=== PATIENT | female | born 1980 | race Caucasian/White ===

== ENCOUNTER 2023-08-19 11:30 | Outpatient (AMB) | payer OTHER, SELFPAY ==
[2023-08-19 12:20] VITALS: BP 118/70; PULSE 74; TEMP 36.6; O2SAT 98; BMI 25.0
--- NOTE | 2023-08-19 12:20 | AM.OFFWIN_ITS ---
Intake Vital Signs 08/19/23 12:20 Height 5 ft 6 in Weight 155 lb BMI 25.0 BP 118/70 Blood Pressure Location Lt brachial Position Sitting Pulse 74 Pulse Source Pulse Oximeter Temp 97.9 F Temp Source Temporal Artery Scan Pulse Oximetry (%) 98 Oxygen Delivery Method Room Air Intake Visit Reasons: [employer] Lower back pain radiating down legs Intake Note: pt is here lower back pain radiating down legs started saturday Patient Tobacco Use Status: Never used Tobacco Allergies No Known Allergies Allergy (Verified 08/19/23 12:23) Do you need a note to return to daycare/school/sports/work: Yes HPI HPI Comments History of Present Illness Details Patient presents to the walk-in today for sick visit Endorses lower back pain for last 3 days. Started after she did hiking moving some furniture around the house Reports that she has this happened a couple times a year, normally will be seen by her primary care doctor and given prednisone which resolved her symptoms Spoke to her PCP today, they are not able to see her so they advised her to come to the walk-in Denies radiation of the pain down either lower extremity Denies loss of bowel, bladder or saddle anesthesia She has been taking cyclobenzaprine and ibuprofen with minimal improvement PFSH Social History Patient Tobacco Use Status: Never used Tobacco Review of Systems Const All systems reviewed & are unremarkable except as noted in HPI and below Physical Exam Vital Signs: Last Vital Signs Temp 97.9 F 08/19/23 12:20 Pulse 74 08/19/23 12:20 BP 118/70 08/19/23 12:20 Pulse Ox 98 08/19/23 12:20 Oxygen Delivery Method Room Air 08/19/23 12:20 BMI result Body Mass Index 25.0 General: awake, alert, oriented. Answers questions appropriately. Fully engaged in examination. Skin: warm, dry, intact HEENT: Normocephalic. Hearing intact. Cardiac: External chest normal in appearance. Respiratory: No cough, audible wheezing or stridor. Abdomen: without gross distension. MS: No obvious swelling or deformities. Able to stand on bilateral tiptoes and bilateral heels.? Able to transition from sit to stand unassisted. Ambulates with bilaterally normal heel strike and toe off SLR with dorsiflexion negative bilaterally Tender to palpation midline lumbar vertebrae lumbar paraspinal muscles Decreased lumbar range of motion Neurological: Oriented to person, place, time and situation. Thought process intact. No gait abnormalities appreciated. Psychiatric: Appropriate mood and affect. Good judgment and insight. Assessment & Plan Assessment & Plan (1) Lumbar strain: Code(s): S39.012A - Strain of muscle, fascia and tendon of lower back, initial encounter Plan Continue with ibuprofen and cyclobenzaprine New Rx: Prednisone 50 mg p.o. daily x5 days Patient advised on red flag symptoms and when to seek treatment in the emergency room Follow up with PCP or return here for any new or worsening symptoms Medications: New prednisone 50 mg PO DAILY 5 tabs 0RF 5 days Coding Level of Care Code New Pt Level 3 (72145) Diagnoses Lumbar strain S39.012A
== END 2023-08-19 13:00 | disposition home or self-care (01) ==
PROVIDERS: PCP Internal Medicine; Visit Provider Registered Nurse Emergency
DX: S39.012A Strain of muscle, fascia and tendon of lower back, initial encounter (principal)
CPT/HCPCS: 99203

== ENCOUNTER 2024-12-30 13:58 | Outpatient (REF) | payer OTHER, SELFPAY ==
--- OUTSIDE RECORDS SUMMARY | 2024-12-30 17:43 | XMS_ITS | Clinical Summary ---
Author Organization [facility] Address [address] [place] [address] Care Team Providers Care Machine Tracer Name Role Phone Unavailable Primary Care Provider Unavailabl e Source Comments PLEASE NOTE, if this patient is a minor, it may be UNLAWFUL to discuss sensitive information that is contained in these records (such as FAMILY PLANNING, MENTAL HEALTH or SUBSTANCE ABUSE) with the minor patient's parent or other person without the patient's specific authorization.[facility] Social History Tobacco Use Types Packs/Day Years Used Date Smoking Tobacco: Never Assessed Comments Unknown Sex and Gender Information Value Date Recorded Sex Assigned at Not on file Legal Sex Female 7:15 AM PDT Gender Identity Not on file Sexual Orientation Not on file Last Filed Vital Signs Vital Sign Reading Time Taken Comments Blood Pressure - - Pulse - - Temperature - - Respiratory Rate - - Oxygen Saturation - - Inhaled Oxygen Concentration - - Weight 75.8 kg (167 lb) 02/22/2015 10:20 AM EST Height 167.6 cm (5' 6 ) 02/22/2015 10:20 AM EST Body Mass Index 26.95 02/22/2015 10:20 AM EST Plan of Treatment Not on file Goals Goal Patient Goal Type Associated Problems Recent Progress Patient-Stated? Author Eat more fruits and vegetables Diet Not on track( 11:14 AM PST) No Luz Elena Bueno RD Have 3 meals a day Diet On track( 11:14 AM PST) No Luz Elena Bueno RD Reduce sugar intake Diet Not on track( 11:14 AM PST) No Luz Elena Bueno RD Reduce portion size Diet Not on track( 11:14 AM PST) No Luz Elena Bueno RD Increase physical activity Exercise Not on track( 11:14 AM PST) No Luz Elena Bueno RD Insurance [employer] Member Subscriber Plan / Payer (Ef fective 2013-Present) Name:Eric Cheunglie Relation to Subscriber:Self Name:Eric Cheunglie Payer ID:[id number] Group ID:[id number] Type:Medicaid Address: [address] [address] [place] [address]
--- OUTSIDE RECORDS SUMMARY | 2024-12-30 17:44 | XMS_ITS ---
Author Name [facility] Organization Unknown Care Team Organization Name Specialty Phone Email Start Date End Da te [facility] Karyn Thornton Primary Care 06/20/2022 024 [facility] Carla Chowdhury Primary Care 02/20/20222023
--- OUTSIDE RECORDS SUMMARY | 2024-12-30 17:44 | XMS_ITS | Clinical Summary ---
Author Organization [facility] Address [address] [place] [address] Care Team Providers Care Director Of Vital Statistics Name Role Phone Zain Flores MD Primary Care Provider [phone] Allergies No known active allergies Medications Medication Sig Dispensed Refills Start Date End Date Status fluticasone (FLONASE) 50 MCG/ACT nasal spray spray/apply 1 spray in each nostril 2 (two) times a day. 0 Active cetirizine (ZyrTEC) 10 MG tablet Take 10 mg by mouth daily. 0 Active albuterol 108 (90 Base) MCG/ACT inhaler Inhale 2 puffs into the lungs every 4 (four) hours as needed for wheezing. 0 Active famotidine (PEPCID) 20 MG tablet Take 20 mg by mouth 2 (two) times a day. 0 Active omeprazole (PriLOSEC) 20 MG capsule Take 20 mg by mouth daily. 0 Active Fluorouracil 5 % SOLN Apply 2 drops topically daily. 0 Active norethindrone (MICRONOR) 0.35 MG tablet Take 1 tablet by mouth daily. 0 Active senna (SENOKOT) 8.6 MG tablet Take 2 tablets by mouth daily. 0 Active polyethylene glycol (MIRALAX) 17 g packet Take 17 g by mouth daily. 0 Active etodolac (LODINE) 500 MG tablet Take 500 mg by mouth 2 (two) times a day. 0 Active nortriptyline (PAMELOR) 25 MG capsule Take 25 mg by mouth 2 (two) times a day. 0 Active pregabalin (LYRICA) 75 MG capsule Take 75 mg by mouth 2 (two) times a day. 0 Active Salicylic Acid 26 % LIQD Apply 2 drops topically daily. 0 Active Salicylic Acid-Urea 5-10 % OINT Apply 1 g topically daily. 0 Active vitamin D3 (VITAMIN D3) 25 MCG (1000 UT) tablet Take 2,000 Units by mouth daily. [address]-3 300 MG CAPS Take 300 mg by mouth 2 (two) times a day. 0 Active Multiple Vitamin (MULTI-VITAMIN DAILY PO) Take 1 tablet by mouth daily. 0 Active docusate sodium (COLACE) 100 MG capsule Take 100 mg by mouth 2 (two) times a day. 0 Active Active Problems No known active problems Family History Medical History Relation Name Comments Cancer Maternal Grandfather Cancer Maternal Grandmother Cancer Sister Relation Name Status Comments Maternal Grandfather Maternal Grandmother Sister Social History Tobacco Use Types Packs/Day Years Used Date Smoking Tobacco: Never Smokeless Tobacco: Never Alcohol Use Standard Drinks/Week Comments Never 0 (1 standard drink = 0.6 oz pur e alcohol) Sex and Gender Information Value Date Recorded Sex Assigned at Not on file Gender Identity Not on file Sexual Orientation Not on file Last Filed Vital Signs Vital Sign Reading Time Taken Comments Blood Pressure 110/74 11/03/2020 2:20 PM EDT Pulse 63 11/03/2020 2:20 PM EDT Temperature 36.3 C (97.4 F) 11/03/2020 2:20 PM EDT Respiratory Rate - - Oxygen Saturation 100% 11/03/2020 2:20 PM EDT Inhaled Oxygen Concentration - - Weight 65.4 kg (144 lb 3.2 oz) 11/03/2020 2:20 P M EDT Height 167.6 cm (5' 6 ) 11/03/2020 2:20 PM EDT Body Mass Index 23.27 11/03/2020 2:20 PM EDT Plan of Treatment Health Maintenance Due Date Last Done Comments Hepatitis B Vaccines (1 of 3 - 3-dose series) 1980 Hepatitis C Screening 1980 COVID-19 Vaccine (#1) 03/11/1981 Depression Screening 1992 Preventative Health Evaluation 1998 Cervical Cancer Screening (P ap Smear) 2001 Influenza Vaccine (#1) 2024 DTap / Tdap / Td (2 - Td or Tdap) 01/20/2025 015 Pneumococcal Vaccine Aged Out No long er eligible based on patient's age to complete this topic RSV Ped < 20 months Aged Out No longe r eligible based on patient's age to complete this topic Care Teams Director Of Vital Statistics Relationship Specialty Start Date End Date Zain Flores MD PCP - General Internal Medicine 11/03/20
--- OUTSIDE RECORDS SUMMARY | 2024-12-30 17:44 | XMS_ITS | Patient Health Record ---
Author Organization [facility] Address [address] [place] [address] Care Team Providers Care Operations Manager/Coordinator Name Role Phone Jacinta (RETIRED) Vinod CARRASCO Primary Care Pr ovider Unavailable Sanjay Yang Unavailable [phone] Reason For Referral No Information Medications Medication SIG (Take, Route, Fr equency, Duration) Notes Start Date End Date Status Lutera Active MoviPrep 100 GM as directed Orally 12/27/201004/2024 Active Omeprazole 20.0 mg TAKE ONE CAPSULE BY MOUTH EVERY DAY FOR HEARTBURN for 30 Active Problems Problem Type SNOMED Code ICD Code Onset Dates Problem Status W/U Status Risk Notes Problem Esophageal reflux (509530676) Esophageal reflux (530.81) Active confirmed Problem Blood in stool (878608936) Blood in stool (578.1) Active confirmed Plan Of Treatment Pending Test Test Name Order Date BUN, Creatinine 12/27/2010 MRI : Abdomen with and without Contrast 12/27/2010 Future Test Test Name Order Date UPPER GI ENDOSCOPY 12/27/2010 COLONOSCOPY 12/27/2010 Insurance Providers Payer Name Payer Address Payer Phone Subscriber Number Group Number Insured Name Patient Relationship to Insured Coverage Start Date Coverage End Date [facility] [employer] Plan [address] [address] [place], [place] [id number] CLARICE SARGENT Self - patient is the insured [employer] [facility] [employer] [facility] [address] [place] [address] [id number] CLARICE SARGENT Self - patient is the insured Medical (General) History Medical History History ICD Code negative cystoscopy since I last saw her , otherwise no changes
== END 2024-12-30 13:59 | disposition home or self-care (01) ==
LOC: HO.NEURO 13:58
PROVIDERS: PCP Internal Medicine; Visit Provider Psychiatry & Neurology Neurology
DX: Z13.89 Encounter for screening for other disorder (principal)